=== PATIENT | female | born 1985 | race Caucasian/White ===

== ENCOUNTER 2020-01-07 20:46 | Emergency (ER) | payer MEDICAID, SELFPAY ==
[2020-01-07 20:48] VITALS: BP 134/84; PULSE 89; RESP 14; TEMP 36.8; O2SAT 100; BMI 30.7
[2020-01-07 21:27] LABS: Mucous, Urine 0 SEEN /hpf (<or=2+); White Blood Cells 0 SEEN /hpf (0-5)
[2020-01-07 21:29] LABS: Color, Urine Yellow (Yellow); Glucose, Dipstick Normal (Normal); Ketone-Dipstick Negative (Negative); Leukocyte Esterase-Dipstick Negative /ul (Negative); Nitrite-Dipstick Negative (Negative); Occult Blood-Urine 50 /ul (Negative); Protein-Dipstick Negative (Negative); Urine Bilirubin Dipstick Negative (Negative); Urine Clarity Clear (Clear); Urine Urobilinogen Normal (Normal); Urine pH 6.5 (5.0 - 8.0)
--- NOTE | 2020-01-07 21:32 | RAD_ITS ---
STUDY: X-RAY CHEST REASON FOR EXAM: Female, 34 years old. Edema for months. TECHNIQUE: Single AP portable view of the chest. COMPARISON: None. FINDINGS: The lungs are clear and expanded. There is no demonstrated pleural abnormality. Normal size heart. Normal mediastinum and esa. Normal visualized pulmonary arteries. Normal visualized aortic arch and descending thoracic aorta. Normal visualized thoracic spine. Normal visualized ribs, clavicles, and shoulders. There is no demonstrated abnormality of the visualized soft tissue structures of the upper abdomen. RAD/Chest 1 View (Portable) IMPRESSION: No acute cardiopulmonary disease. Electronically Signed: Pierre Hanson DO at 21:49 EDT Tel [phone], Service support ,
[2020-01-07 21:33] LABS: Absolute Lymphocyte Count 2.82 X10^3/uL (0.83-4.51); Basophil# 0.09 X10^3/uL; Basophil% 0.8 % (0-1); Eosinophil# 0.36 X10^3/uL; Eosinophils% 3.2 % (0-5); Hematocrit 45.9 % (37-47); Hemoglobin 15.4 g/dL (12.0-15.0); Lymphocyte # 2.82 X10^3/ul (4.0); Lymphocyte % 25.4 % (19-41); Mean Corp Hgb Conc 33.6 g/dL (32-36); Mean Corpuscular Hgb 30.1 pg (27.0-32.0); Mean Corpuscular Volume 89.8 fL (81-99); Mean Platelet Vol. 9.8 fl (6.2-12.0); Monocyte# 0.76 X10^3/uL; Monocyte% 6.8 % (0-10); NRBC Flagged by Analyzer 0 % (0-5); Neutrophil # 7.01 X10^3/uL (2.7-7.7); Neutrophil % 63.1 % (47-70); Platelet Count 330 K/mm3 (150-450); RBC Distribution Width CV 12.4 % (11.6-14.6); Red Blood Count 5.11 M/mm3 (4.2-5.4); White Blood Count 11.1 K/mm3 (4.4-11.0)
[2020-01-07 21:35] LABS: Bacteria RARE /hpf (None Seen); Red Blood Cells-Urine 0-5 SEEN /hpf (0-5); Squamous Epithelial Cells - UA 0-5 SEEN /hpf (5-10)
[2020-01-07 21:42] LABS: Internal QC Validated? YES +Cl - CLEAR BKGD; Pregnancy, Serum, hCG Quali. NEGATIVE Negative
[2020-01-07 21:49] LABS: AST(SGOT) 29 U/L (15-37); Alanine Aminotransfer ALT/SGPT 44 U/L (13-56); Albumin, Serum 3.9 g/dL (3.2-5.0); Alkaline Phosphatase 122 U/L (45-117); Anion Gap 5 (5-15); BUN 10 mg/dL (7-18); BUN/Creat Ratio 11.4 RATIO (10-20); Calcium,Total 9.2 mg/dL (8.5-10.1); Chloride 107 mmol/L (98-107); Creatinine, Serum 0.88 mg/dL (0.55-1.02); EST Glomerular Filtration Rate 78 mL/min (>60); Est Glom Filt Rate - Afr Amer 94 mL/min (>60); Estimated Creatinine Clearance 77.79 ml/min; Globulin 3.9 g/dL (2.2-4.2); Glucose 64 mg/dL (74-106); Potassium 3.7 mmol/L (3.5-5.1); Protein, Total 7.8 g/dL (6.4-8.2); Sodium Level 139 mmol/L (136-145)
--- NOTE | 2020-01-07 21:54 | ED.DCSUM_ITS ---
- ER Visit Summary Date of Service: 01/07/20 Chief Complaint: Edema History of Present Illness: The patient is a 34 F who presents with generalized edema that has been getting worse over the past several days. Patient states she was seen in an emergency department in [facility] and was prescribed Lasix. Patient states she ran out of this and since that time her swelling has gotten worse. Patient states her swelling is generalized. Patient states it is worse in her abdomen. Patient states she has some dyspnea when she lays flat. Patient denies any fevers or chills. Patient denies any cough. Patient does admit to a migraine headache. Patient denies any chest pain. Physical Examination: Vital signs are stable. Patient is afebrile. Patient is in no acute distress. Oral mucosa is pink and moist. Neck is supple. Trachea is midline. There is no JVD. Heart was regular rate and rhythm. Lungs are clear and equal bilaterally. There are no rales noted. Abdomen is soft. Bowel sounds are normal. There is mild diffuse tenderness. There is no rebound or guarding noted. Cranial nerves II through XII are intact. There are no focal motor or sensory deficits noted. Extremities are intact. There is no calf tenderness. There is no lower extremity edema noted. Test Results: CBC shows a slight leukocytosis of 11.1. Comprehensive metabolic profile was essentially within normal limits. Urinalysis does not show any evidence of urinary tract infection. Serum hCG was negative. Portable chest x- ray was obtained. There is no acute cardiopulmonary process. There are no pleural effusions or evidence of congestive heart failure. These were interpreted by the radiologist and reviewed by myself. Emergency Department Course and Treatment: Patient was advised of her results. Patient was advised that there is no indication for prescribing Lasix at this time. Patient was given a referral for primary care physician. Patient was instructed to follow-up with them. Patient was instructed to return if worse in any way. Patient understood and was agreeable with the plan. All questions were answered. Disposition: Discharge home Impression: Peripheral edema This note was generated with [employer] software. It may contain incorrect words, spelling, and punctuation that were not noted in review of the chart prior to signing ED Disposition - Plan for ED Patient: Disposition: Home or Assisted Living Diagnosis: Mild peripheral edema Instructions: ED Peripheral Edema, Bilateral Referrals: Care Physician,No Primary [Primary Care Provider] - Martinez Kilpatrick MD [STAFF PHYSICIAN] - 3-5 Days
== END 2020-01-07 22:12 | disposition home or self-care (01) ==
PROVIDERS: Emergency Provider Emergency Medicine
DX: R60.0 Localized edema (principal); G43.909 Migraine, unspecified, not intractable, without status migrainosus; F17.210 Nicotine dependence, cigarettes, uncomplicated
CPT/HCPCS: 71045; 80053; 81001; 84703; 85025; 99282; A4216

== ENCOUNTER 2021-07-22 15:26 | Emergency (ER) | payer MEDICAID, SELFPAY ==
[2021-07-22 15:27] VITALS: BP 126/80; PULSE 73; RESP 18; TEMP 36; O2SAT 97; BMI 22.3
--- NOTE | 2021-07-22 15:47 | CT_ITS ---
STUDY: CT BRAIN WITHOUT CONTRAST REASON FOR EXAM: Female, 36 years old. Dizziness RADIATION DOSAGE (If Supplied By Facility): CTDIvol = ( 44.99 ) mGy, DLP = ( 745.49 ) mGycm TECHNIQUE: Transaxial CT imaging of the brain was performed without administration of intravenous contrast material. Individualized dose optimization techniques were used for this CT. COMPARISON: No relevant priors. FINDINGS: Normal soft tissue structures. Normal calvarium. Normal size ventricles and extra-axial spaces for the patient''s age. Normal white matter tracts of the cerebral hemispheres. Normal basal ganglia and thalami. Normal brainstem. Normal cerebellum. There is no intracranial hemorrhage. There are no findings of an acute ischemic infarction. Mild mucosal thickening of the paranasal sinuses. CT/Brain/Head without Contrast IMPRESSION: Normal unenhanced CT scan of the brain. Mild paranasal sinus disease. Electronically Signed: Yannick Campa DO at 16:44 EST Tel [phone], Service support ,
--- NOTE | 2021-07-22 15:47 | EKG12_ITS ---
Test Reason : DIZZINESS Blood Pressure : / mmHG Vent. Rate : 063 BPM Atrial Rate : 063 BPM P-R Int : 168 ms QRS Dur : 076 ms QT Int : 438 ms P-R-T Axes : 022 040 036 degrees QTc Int : 448 ms Normal sinus rhythm Normal ECG Confirmed by LOGAN EDGAR, RODGER ([id number]), desk editor CLARY DOUGLAS ([id number]) on 07/25/2021 11:31:55 AM Referred By: MAX Confirmed By:RODGER FORD MD
--- NOTE | 2021-07-22 15:48 | EDS_ITS ---
HPI History of Present Illness Chief Complaint: Dizziness Narrative Narrative: Patient presents with her mother because of an episode of dizziness and lightheadedness that she experienced approximately an hour ago. She states that she had just turned on her telephone and was watching a [employer] video, and had blurry vision in her bilateral eyes, I developed a headache on the right side of her body, and states that her left arm felt numb. Those symptoms have resolved and now she feels weak. 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 She also has an inhaler for asthma. She and her mother relate history that she was living in [place] and was diagnosed with brain tumor last . She also has multiple sclerosis, but does not take any medications. She has not followed up with a neurologist since her diagnosis of her brain tumor and does not take medications for her MS. PFSH PFS Home Medications Buprenorphine 1 tab PO DAILY 01/07/20 [History Last Taken Unknown] albuterol sulfate 1 - 2 puff INHALATION Q4H PRN PRN 01/07/20 [History Last Taken Unknown] Allergy/AdvReac Type Severity Reaction Status Date / Time acetaminophen [From Vicodin] Allergy Shortness Verified 07/22/21 15:28 of breath aspirin Allergy Hives Verified 07/22/21 15:28 hydrocodone [From Vicodin] Allergy Shortness Verified 07/22/21 15:28 of breath Social History Smoking Status: Current every day smoker tobacco type: cigarettes ROS ROS ED ROS Narrative Constitutional: No fever, no chills. HEENT: No sore throat. No neck pain. No loss of vision. Transient blurry vision bilateral eyes. No rhinorrhea. Cardiovascular: No chest pain. No palpitations. No pedal edema. Respiratory: No cough, no shortness of breath. Abdominal: No abdominal pain. No nausea. No vomiting. Genitourinary: No dysuria. No hematuria. Musculoskeletal: No myalgias. No arthralgias. Neurologic: Right-sided headaches. Positive dizziness. Positive lightheadedness. Paresthesia of left upper extremity-resolved. Generalized weakness. Skin: No rash. No change in color. Psychiatric: No depression. No anxiety. EXAM Physical Exam Narrative Exam Narrative: Afebrile. Vital signs noted. HEENT: Normocephalic. Atraumatic. PERRL, EOMI. Neck soft and supple. No point tenderness or step off. Cardiovascular: Regular rate and rhythm. No murmurs, rubs, or gallops appreciated. Respiratory: No tachypnea. Lungs clear to auscultation bilaterally. Gastrointestinal: Abdomen soft, nontender, with normoactive bowel sounds. No rebound or guarding. Neurological: Awake. Alert. Nonfocal, nonlateralizing. NIH stroke scale is 0. Skin: No rash. Normal color. No pallor. Musculoskeletal: No pedal edema. Full range of motion extremities. Const Vital Signs: 07/22/21 15:27 07/22/21 15:38 07/22/21 16:56 Temperature 96.8 F L Temperature Source Temporal Pulse Rate 73 61 Respiratory Rate 18 20 H Respiratory Effort Normal Non-Labored Respiratory Pattern Normal Blood Pressure 126/80 H 134/91 H Blood Pressure Mean 95 105 Pulse Ox 97 100 Oxygen Delivery Method Room Air MDM MDM MDM Narrative Medical decision making narrative: Comprehensive work-up was pursued. EKG was obtained which demonstrates normal sinus rhythm at 63 bpm without ectopy or acute ST changes. High-sensitivity troponin is negative at 6. He has slightly elevated white count of 11.2 which I think is nonspecific. Hemoglobin also elevated 15.2, with normal hematocrit of 45.1. Electrolyte panel is grossly unremarkable. This is with exception of alk phos which is chronically elevated, today at 119. Urinalysis shows negative nitrites and negative leukocyte esterase. I do not feel antibiotics are indicated. Chest x-ray shows no acute process. CT the brain was obtained which shows no evidence of mass, no acute process. After bolus of normal saline intravenously, she was reexamined and is using her cellular telephone, resting comfortably in bed. She states she feels mildly improved. At this point in time, I feel she be discharged safely home with follow-up. Return instructions to the emergency department were reviewed. Disposition is discharged home in stable condition. Lab Data Labs: Laboratory Results - last 24 hr 07/22/21 07/22/21 07/22/21 16:05 16:05 16:15 WBC 11.2 H RBC 4.92 Hgb 15.2 H Hct 45.1 MCV 91.7 MCH 30.9 MCHC 33.7 RDW Std Deviation 42.5 RDW Coeff of Johnny 12.6 Plt Count 314 MPV 10.5 Immature Gran % (Auto) 0.600 Neut % (Auto) 71.2 H Lymph % (Auto) 19.0 Lamar % (Auto) 5.3 Eos % (Auto) 2.9 Baso % (Auto) 1.0 Absolute Neuts (auto) 7.9 H Absolute Lymphs (auto) 2.12 Nucleated RBC % 0 Sodium 138 Potassium 3.8 Chloride 105 Carbon Dioxide 28.0 Anion Gap 5 BUN 8 Creatinine 0.84 Estim Creat Clear Calc 79.95 Est GFR (MDRD) Af Amer 99 Est GFR (MDRD) Non-Af 82 BUN/Creatinine Ratio 9.5 L Glucose 104 Calcium 8.6 Total Bilirubin 0.30 AST 21 ALT 29 Alkaline Phosphatase 119 H Troponin I High Sens 6 Total Protein 7.4 Albumin 3.3 Globulin 4.1 Albumin/Globulin Ratio 0.8 L Urine Color Yellow Urine Clarity Clear Urine pH 8.0 Ur Specific [place] 1.015 Urine Protein Negative Urine Glucose (UA) Normal Urine Ketones Negative Urine Occult Blood 50 H Urine Nitrite Negative Urine Bilirubin Negative Urine Urobilinogen Normal Ur Leukocyte Esterase Negative Urine RBC 0-5 SEEN Urine WBC 0 SEEN Ur Squamous Epith Cells 0 SEEN Urine Bacteria 0 SEEN Urine Mucus 0 SEEN Radiography Diagnostic Testing: Clinical Impression(s) from Imaging Studies Brain CT 07/22/21 15:47 IMPRESSION: Normal unenhanced CT scan of the brain. Mild paranasal sinus disease. Electronically Signed: Yannick Campa DO at 16:44 EST Tel [phone], Service support , Chest X-Ray 07/22/21 16:30 IMPRESSION: Normal x-ray examination of the chest. Electronically Signed: Yannick Campa DO at 16:45 EST Tel [phone], Service support , Discharge Plan Triage Chief Complaint: Dizziness ED Provider: Kris Griffin Dx/Rx/DC Orders Clinical Impression: Dizziness, Paresthesia, Near syncope, Headache Instructions: ED Dizziness, Uncertain Cause, ED Paraesthesias Prescriptions: No Action albuterol sulfate 1 PUFF inhaler 1 - 2 puff inhalation Q4H PRN PRN (Reason: Sob &/Or Wheezing) RF: 0 Buprenorphine 1 tab PO DAILY RF: 0 Primary Care Provider: Care Physician,No Primary Referrals: Care Physician,No Primary [Primary Care Provider] - Clinic[facility] [NON-STAFF] - 07/27/21 Disposition Disposition: Home, Self Care
--- NOTE | 2021-07-22 15:52 | CM.ED ---
SW Note Referral Source: Case Find Referral Reason: No Primary Care Physician (PCP) SW reviewed chart and noted that patient has no PCP. SW provided patient with list of [facility] List for reference. SW also provided patient with handout ?Where to go When?. No other issues or concerns voiced at this time. SW remains available for any additional needs. Plan: Provided patient with PCP information Asmita SCHMIDT
[2021-07-22] MEDS: 0.9% Normal Saline 1,000 ML 1000 ML IV (16:20)
[2021-07-22 16:22] LABS: Bacteria 0 SEEN /hpf (None Seen); Mucous, Urine 0 SEEN /hpf (<or=2+); Squamous Epithelial Cells - UA 0 SEEN /hpf (5-10); White Blood Cells 0 SEEN /hpf (0-5)
[2021-07-22 16:26] LABS: Absolute Lymphocyte Count 2.12 X10^3/uL (0.83-4.51); Absolute Neutrophil Count 7.9 X10^3/uL (2.0-7.7); Basophil# 0.11 X10^3/uL; Eosinophil# 0.32 X10^3/uL; Eosinophils% 2.9 % (0-5); Hematocrit 45.1 % (37-47); Hemoglobin 15.2 g/dL (12.0-15.0); Lymphocyte # 2.12 X10^3/ul (0.83-4.51); Mean Corp Hgb Conc 33.7 g/dL (32-36); Mean Corpuscular Hgb 30.9 pg (27.0-32.0); Mean Corpuscular Volume 91.7 fL (81-99); Mean Platelet Vol. 10.5 fl (6.2-12.0); Monocyte# 0.59 X10^3/uL; Monocyte% 5.3 % (0-10); NRBC Flagged by Analyzer 0 % (0-5); Neutrophil # 7.94 X10^3/uL (2.7-7.7); Neutrophil % 71.2 % (47-70); Platelet Count 314 K/mm3 (150-450); RBC Distribution Width CV 12.6 % (11.6-14.6); RBC Distribution Width SD 42.5 fl (35.1-43.9); Red Blood Count 4.92 M/mm3 (4.2-5.4); White Blood Count 11.2 K/mm3 (4.4-11.0)
--- NOTE | 2021-07-22 16:30 | RAD_ITS ---
STUDY: X-RAY CHEST REASON FOR EXAM: Female, 36 years old. Pain TECHNIQUE: Frontal view COMPARISON: 01/07/2020. FINDINGS: The lungs are clear and expanded. There is no demonstrated pleural abnormality. Normal size heart. Normal mediastinum and esa. Normal visualized pulmonary arteries. Normal visualized aortic arch and descending thoracic aorta. Normal visualized thoracic spine. Normal visualized ribs, clavicles, and shoulders. There is no demonstrated abnormality of the visualized soft tissue structures of the upper abdomen. RAD/Chest 1 View (Portable) IMPRESSION: Normal x-ray examination of the chest. Electronically Signed: Yannick Campa DO at 16:45 EST Tel [phone], Service support ,
[2021-07-22 16:35] LABS: ALB/GLOB Ratio 0.8 RATIO (0.9-2.4); AST(SGOT) 21 U/L (15-37); Alanine Aminotransfer ALT/SGPT 29 U/L (13-56); Albumin, Serum 3.3 g/dL (3.2-5.0); Alkaline Phosphatase 119 U/L (45-117); Anion Gap 5 (5-15); BUN 8 mg/dL (7-18); BUN/Creat Ratio 9.5 RATIO (10-20); Calcium,Total 8.6 mg/dL (8.5-10.1); Chloride 105 mmol/L (98-107); Creatinine, Serum 0.84 mg/dL (0.55-1.02); EST Glomerular Filtration Rate 82 mL/min (>60); Est Glom Filt Rate - Afr Amer 99 mL/min (>60); Estimated Creatinine Clearance 79.95 ml/min; Globulin 4.1 g/dL (2.2-4.2); Glucose 104 mg/dL (74-106); Potassium 3.8 mmol/L (3.5-5.1); Protein, Total 7.4 g/dL (6.4-8.2); Sodium Level 138 mmol/L (136-145); Troponin-I HS 6 pg/mL (3.0-54.0)
[2021-07-22 16:37] LABS: Color, Urine Yellow (Yellow); Glucose, Dipstick Normal (Normal); Ketone-Dipstick Negative (Negative); Leukocyte Esterase-Dipstick Negative /ul (Negative); Nitrite-Dipstick Negative (Negative); Occult Blood-Urine 50 /ul (Negative); Protein-Dipstick Negative (Negative); Specific Gravity, Urine 1.015 (1.002-1.030); Urine Bilirubin Dipstick Negative (Negative); Urine Clarity Clear (Clear); Urine Urobilinogen Normal (Normal)
[2021-07-22 16:56] VITALS: BP 134/91; PULSE 61; RESP 20; O2SAT 100
[2021-07-22 17:00] LABS: Red Blood Cells-Urine 0-5 SEEN /hpf (0-5)
[2021-07-22 18:06] VITALS: BP 127/84; PULSE 86; RESP 15; O2SAT 96
== END 2021-07-22 18:08 | disposition home or self-care (01) ==
PROVIDERS: Emergency Provider Emergency Medicine
DX: R42 Dizziness and giddiness (principal); R55 Syncope and collapse; R51.9 Headache, unspecified; R20.2 Paresthesia of skin; F17.210 Nicotine dependence, cigarettes, uncomplicated; G35 Multiple sclerosis; J45.909 Unspecified asthma, uncomplicated
CPT/HCPCS: 70450; 71045; 80053; 81001; 84484; 85025; 93005; 96360; 99285; J7030; A4216

== ENCOUNTER 2022-03-02 21:37 | Emergency (ER) | payer MEDICAID, SELFPAY ==
[2022-03-02 21:37] VITALS: BP 137/90; PULSE 86; RESP 18; TEMP 36.4; O2SAT 98; BMI 28.3
--- NOTE | 2022-03-02 22:24 | EDS_ITS ---
HPI History of Present Illness Chief Complaint: General Illness Informant: patient Onset/Context/Timing Onset: Today Context: Gradual Onset Timing: Intermittent Current Severity: Mild Maximum Severity: Mild Narrative Narrative: 36-year-old female past medical history of MS and prior heroin abuse. She denies having any IV drug abuse history. 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 When she got home this morning she noticed some mild swelling in her feet. She went to sleep symptoms improved. Then she noticed again the night. She denies any chest pain or shortness of breath. She denies any leg pain. States she is urinating normally. Has no history of kidney disease. No other symptoms. No recent illness or hospitalization. No history of DVT or PE or risk factors. Prior similar symptoms: No Recent Illness/Hospitalization: No PFSH PFSH Medical History Asthma Multiple sclerosis Home Medications Buprenorphine 1 tab PO DAILY 01/07/20 [History Last Taken Unknown] albuterol sulfate 90 mcg/actuation aerosol inhaler 1 - 2 puff inhalation Q4H PRN PRN Sob &/Or Wheezing 01/07/20 [History Last Taken Unknown] Allergy/AdvReac Type Severity Reaction Status Date / Time acetaminophen [From Vicodin] Allergy Shortness Verified 03/02/22 21:40 of breath aspirin Allergy Hives Verified 03/02/22 21:40 hydrocodone [From Vicodin] Allergy Shortness Verified 03/02/22 21:40 of breath Social History Smoking Status: Current every day smoker tobacco type: cigarettes ROS ROS ED ROS Narrative Denies recent illness. Review of Systems ROS Unobtainable: Denies due to encephalopathy Constitutional Constitutional ED: Denies chills Eyes Eyes: Denies blurry vision ENT ENT ED: Denies ear pain Cardiovascular Cardiovascular: Denies chest pain Respiratory/Chest Respiratory/Chest: Denies cough Gastrointestinal Gastrointestinal: Denies abdominal pain Genitourinary Genitourinary ED: Denies dysuria Musculoskeletal Musculoskeletal: Denies arthralgias Integumentary Denies abscess Neurologic Neurologic: Denies headache(s) Psychiatric Psychiatric: Denies anxiety Endocrine Endocrinology: Denies cold intolerance Allergic/Immunologic Allergic/Immunologic ED: Denies mouth swelling EXAM Physical Exam Narrative Exam Narrative: Well-appearing 36-year-old female. Vital signs stable afebrile. Pulse ox 90% on room air. No hypoxia. Blood pressure 137/90. She does not look septic or toxic in any distress. H EENT exam unremarkable except for reported Leal dentition multiple cavities. Neck nontender. No JVD. Lungs clear to auscultation bilaterally. Heart regular rate and rhythm rate about 80 no murmur. Abdomen soft nontender. Moving all 4 extremities. Calves are nontender without edema or cords. She has bipedal edema that is mild. Normal strength. Neurologically she is awake alert with no focal motor deficits. Const Vital Signs: 03/02/22 21:37 03/02/22 21:55 Temperature 97.6 F L Temperature Source Temporal Pulse Rate 86 Respiratory Rate 18 Respiratory Pattern Normal Blood Pressure 137/90 H Blood Pressure Mean 105 Pulse Ox 98 Oxygen Delivery Method Room Air Positive well nourished and well developed; Negative for obese, cachectic or contractures General Appearance ED: well developed; Negative for cachectic or contractures Nutritional Appearance: Negative for cachectic or obese HEENT Reports moist mucous membranes; Denies dry mucous membranes Negative for trauma or tenderness Mouth ED: No dry mucous membranes Mouth: No dry mucous membranes Eyes PERRL and EOMs intact bilaterally General Eye ED: Negative for pale conjunctiva or scleral icterus Neck no lymphadenopathy, supple and no JVD General: Negative for tenderness Chest Wall inspection of chest normal and palpation of chest normal Resp normal respiratory effort and clear to auscultation bilaterally Effort and Inspection: Negative for retractions Auscultation: Negative for rales, rhonchi, wheezes or diminished lung sounds Cardio regular rate, regular rhythm, S1 normal heart sound, S2 normal heart sound and no murmurs Palpation: Negative for palpable S3 Rate: Negative for bradycardia Rhythm: Negative for abnormal rhythm GI normal to inspection, nondistended, normoactive bowel sounds, non-tender, non- distended and no masses; Negative for hepatosplenomegaly Inspection: Negative for abdominal distention Auscultation: normoactive bowel sounds; Negative for hyperactive bowel sounds or hypoactive bowel sounds Palpation: soft; Negative for tender, guarding or mass Back/Spine no CVA tenderness General Back: Negative for CVA tenderness Cervical Spine: Negative for cervical spine tenderness Thoracic Spine / Upper Back: Negative for thoracic spinal tenderness Extremity Extremity Narrative: Bipedal edema.. Nontender. Calves are nontender without cords. General Extremety ED: Yes edema General Extremity: edema Neuro oriented x3 Sensorium / Orientation: alert; Negative for orientation impaired, lethargic or stuporous Motor Exam: strength 5/5 throughout; Negative for general weakness or strength abnormal Psych mental status grossly normal Appearance: Negative for other Attitude: No agitated Mood & Affect: Negative for depressed Skin no rashes or lesions noted and no wounds Rashes: No rashes noted Trauma: Negative for abrasion Wounds: Negative for wounds noted MDM MDM MDM Narrative Medical decision making narrative: 36-year-old with bipedal mild edema. Exam benign. Screening labs to be obtained. Repeat exam patient is doing well at 11:05 PM. We went over her test results. She will be discharged to home. Lab Data Attestation: I reviewed the patient's lab results. Lab results narrative: CBC normal. White count 8. H&H 14 and 44. Electrolytes normal gap of 4 normal BUN and creatinine at 9 and 0.8. Glucose 119. Labs: Laboratory Results - last 24 hr 03/02/22 03/02/22 22:30 22:30 WBC 8.3 RBC 4.78 Hgb 14.9 Hct 44.3 MCV 92.7 MCH 31.2 MCHC 33.6 RDW Std Deviation 43.5 RDW Coeff of Johnny 12.8 Plt Count 313 MPV 10.3 Sodium 137 Potassium 4.0 Chloride 105 Carbon Dioxide 28.0 Anion Gap 4 L BUN 9 Creatinine 0.82 Estim Creat Clear Calc 78.46 Est GFR (MDRD) Af Amer 101 Est GFR (MDRD) Non-Af 83 BUN/Creatinine Ratio 10.9 Glucose 119 H Calcium 8.9 Discharge Plan Triage Chief Complaint: General Illness ED Provider: Bimal Sharma Dx/Rx/DC Orders Clinical Impression: Mild peripheral edema Instructions: ED Peripheral Edema, Bilateral Prescriptions: No Action albuterol sulfate 1 PUFF inhaler 1 - 2 puff inhalation Q4H PRN PRN (Reason: Sob &/Or Wheezing) Buprenorphine 1 tab PO DAILY Primary Care Provider: Care Physician,No Primary Referrals: Venkatesh Oshea MD [STAFF PHYSICIAN] - As Needed Care Physician,No Primary [Primary Care Provider] - Activity Restrictions/Additional Instructions: Full follow-up with your doctor as needed. Return if worse. Elevate your leg to decrease the swelling. Disposition Disposition: Home, Self Care
[2022-03-02 22:41] LABS: Hematocrit 44.3 % (37-47); Hemoglobin 14.9 g/dL (12.0-15.0); Mean Corp Hgb Conc 33.6 g/dL (32-36); Mean Corpuscular Hgb 31.2 pg (27.0-32.0); Mean Corpuscular Volume 92.7 fL (81-99); Mean Platelet Vol. 10.3 fl (6.2-12.0); Platelet Count 313 K/mm3 (150-450); RBC Distribution Width CV 12.8 % (11.6-14.6); RBC Distribution Width SD 43.5 fl (35.1-43.9); Red Blood Count 4.78 M/mm3 (4.2-5.4); White Blood Count 8.3 K/mm3 (4.4-11.0)
[2022-03-02 22:57] LABS: Anion Gap 4 (5-15); BUN 9 mg/dL (7-18); BUN/Creat Ratio 10.9 RATIO (10-20); Calcium,Total 8.9 mg/dL (8.5-10.1); Chloride 105 mmol/L (98-107); Creatinine, Serum 0.82 mg/dL (0.55-1.02); EST Glomerular Filtration Rate 83 mL/min (>60); Est Glom Filt Rate - Afr Amer 101 mL/min (>60); Estimated Creatinine Clearance 78.46 ml/min; Glucose 119 mg/dL (74-106); Sodium Level 137 mmol/L (136-145)
[2022-03-02 23:13] VITALS: BP 105/77; PULSE 65; RESP 16; O2SAT 95
== END 2022-03-02 23:19 | disposition home or self-care (01) ==
PROVIDERS: Emergency Provider Emergency Medicine; Visit Provider Emergency Medicine
DX: R60.0 Localized edema (principal); G35 Multiple sclerosis; F17.210 Nicotine dependence, cigarettes, uncomplicated; J45.909 Unspecified asthma, uncomplicated
CPT/HCPCS: 80048; 85027; 99282; A4216

== ENCOUNTER → 2022-03-08 | Outpatient (CLI) | payer MEDICAID, SELFPAY ==
[2022-03-08 12:41] LABS: Thyroid Stim Hormone (TSH) 2.69 uIU/mL (0.358-3.74)
== END | disposition home or self-care (01) ==
LOC: BIMLAB 10:27
PROVIDERS: PCP Internal Medicine; Referring Provider Internal Medicine; Visit Provider Internal Medicine
DX: R63.5 Abnormal weight gain (principal); R42 Dizziness and giddiness; R60.0 Localized edema
CPT/HCPCS: 36415; 84443

== ENCOUNTER → 2022-03-09 | Outpatient (CLI) | payer MEDICAID, SELFPAY | END | disposition home or self-care (01) | LOC: PSN 11:58 | PROVIDERS: PCP Internal Medicine; Referring Provider Internal Medicine; Visit Provider Internal Medicine | DX: R42 Dizziness and giddiness (principal) | CPT/HCPCS: 93225; 93226 ==

== ENCOUNTER 2022-03-12 14:31 | Emergency (ER) | payer MEDICAID, SELFPAY ==
[2022-03-12 14:34] VITALS: BP 113/90; PULSE 97; RESP 17; TEMP 36.6; O2SAT 96; BMI 30.4
--- NOTE | 2022-03-12 14:41 | EKG12_ITS ---
Test Reason : CP Blood Pressure : / mmHG Vent. Rate : 090 BPM Atrial Rate : 090 BPM P-R Int : 142 ms QRS Dur : 080 ms QT Int : 370 ms P-R-T Axes : 022 036 047 degrees QTc Int : 452 ms Normal sinus rhythm Nonspecific T wave abnormality Abnormal ECG Confirmed by LU EDGAR, SANKET ([id number]), film editor supervisor CLARY DOUGLAS ([id number]) on 03/14/2022 9:54:38 AM Referred By: Leslie Dee Confirmed By:SANKET LEIGH MD
--- NOTE | 2022-03-12 15:19 | EDS_ITS ---
HPI History of Present Illness Chief Complaint: Edema Informant: patient Narrative Narrative: Patient Osman presents with lower extremity edema. It is bilateral and equal. She was seen here a week or so ago with this. She did follow-up with her physician. She had what sounds like a Holter monitor on for 2 or 3 days. However I cannot get from her that she ever had palpitations or chest pain. She cannot recall any change in her diet or salty foods. She does state that she has been drinking lots of fluids in the heat. She does stand on her feet at work. This sometimes makes it worse. Sometimes he gets better resting overnight but not always. She states sometimes she gets shortness of breath on review of systems. However, the more I asked she states she has asthma and she sometimes gets short of breath and that is been going on for years and is not any different now. She is not short of breath now. She has had no travel surgery or immobilization personal or family history of DVT or PE. She was seen here and blood work was done. She followed up with her physician, Dr. Whyte. The monitor was done. She called the on-call physician today stating she still has swelling and she was referred into the emergency department because they karen l not be able to see her until Sunday. No fevers or chills. No other complaints. No change in medicines [facility] Medical History Anxiety Asthma Drug abuse Fluttering heart H/O emotional problems High blood pressure Hives Insomnia Multiple sclerosis Neuropathy UTI (urinary tract infection) Home Medications albuterol sulfate 90 mcg/actuation aerosol inhaler 1 - 2 puff inhalation Q4H PRN PRN Sob &/Or Wheezing 01/07/20 [History Last Taken Unknown] Buprenorphine 2 tab PO DAILY 03/08/22 [History Last Taken Unknown] ibuprofen 600 mg tablet 600 mg PO TID PRN Pain 03/08/22 [History Last Taken Unknown] trazodone 50 mg tablet 50 mg PO QHS #30 tabs 03/08/22 [Rx Last Taken Unknown] amoxicillin 875 mg tablet 1 tab PO BID 03/12/22 [History Last Taken Unknown] Allergy/AdvReac Type Severity Reaction Status Date / Time acetaminophen [From Vicodin] Allergy Shortness Verified 03/12/22 14:32 of breath aspirin Allergy Hives Verified 03/12/22 14:32 hydrocodone [From Vicodin] Allergy Shortness Verified 03/12/22 14:32 of breath naxolene Allergy Swelling Uncoded 03/12/22 14:32 Family History Father Alcohol abuse Arthritis Liver disease Grandfather Alcohol abuse Colon cancer Mother Arthritis Asthma CVA (cerebral vascular accident) Aunt Breast cancer Cancer uterine Surgical History H/O dilation and curettage History of partial hysterectomy Social History household members: family and children current occupational status: employed 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 Smoking Status: Current every day smoker tobacco type: cigarettes Electronic Cigarette Use: not used alcohol intake: never substance use type: does not use what type of physical activity do you participate in: walking do you feel safe at home: Yes ROS ROS ED Constitutional Constitutional ED: Denies chills, fever(s), sweats or weight loss Eyes Eyes: Denies change in vision ENT ENT ED: Denies rhinorrhea Cardiovascular Cardiovascular: Denies chest pain, palpitations or racing heartbeat Respiratory/Chest Respiratory/Chest: Denies cough, dyspnea, dyspnea on exertion or sputum Gastrointestinal Gastrointestinal: Denies abdominal pain, diarrhea, nausea or vomiting Genitourinary Genitourinary ED: Denies dysuria or hematuria Musculoskeletal Musculoskeletal: Denies arthralgias or myalgias Integumentary Denies rash Neurologic Neurologic: Denies headache(s), paresthesias or weakness Endocrine Endocrinology: Denies polydipsia or polyuria Hematologic/Lymphatic Hematologic/Lymphatic: Denies easy bleeding or easy bruising Allergic/Immunologic Allergic/Immunologic ED: Denies urticaria EXAM Physical Exam Const Vital Signs: 03/12/22 14:34 03/12/22 14:39 Temperature 97.8 F Temperature Source Temporal Pulse Rate 97 Respiratory Rate 17 Respiratory Effort Short of Breath Blood Pressure 113/90 H Blood Pressure Mean 97 Pulse Ox 96 Oxygen Delivery Method Room Air Positive well nourished and well developed Constitutional Narrative: Patient is laying flat in the bed when I walk in the room. Breathing is easy and unlabored. She carries on normal conversation. Overall nontoxic General Appearance ED: well developed and NAD HEENT Reports moist mucous membranes Eyes General Eye ED: Negative for pale conjunctiva or scleral icterus Neck no JVD Resp normal respiratory effort and clear to auscultation bilaterally Resp Narrative: No rales. No wheezing no pain with a deep breath. Auscultation: Negative for rales, rhonchi or wheezes Cardio regular rate, regular rhythm and no murmurs GI normal to inspection, nondistended, normoactive bowel sounds, non-tender and non-distended Back/Spine no CVA tenderness Extremity Extremity Narrative: There is trace swelling around the ankles and feet. Although I press firmly into the pretibial area, I am not able to get actually any pitting. But her feet and ankles do look a little pizarro than I would expect from the rest of her body habitus. Color is normal. Pulses are normal. No change in temperature. No lesions sores or rash. The changes I see look equal side to side. Neuro oriented x3 Psych mental status grossly normal Skin no rashes or lesions noted MDM MDM MDM Narrative Medical decision making narrative: Patient's CBC is normal. Electrolytes are normal. BUN is on the lower side. This might be overhydration as the patient has been drinking a lot of fluids. BNP is normal. I did send off a TSH but we may not get this back. I think patient safe for outpatient treatment. She has no risk factor for DVT or PE. No cord. No distended veins. She has equal mild peripheral edema at ankles and feet. She should elevate them. She should not over hydrate with free water. She will follow-up with her private physician, Dr. Dee. If she develops pain, fevers, dyspnea chest pain she should return. Patient is comfortable with this plan. She did request a note from work which was provided. Lab Data Attestation: I reviewed the patient's lab results. Labs: Laboratory Results - last 24 hr 03/12/22 03/12/22 03/12/22 15:30 15:30 15:30 WBC 10.1 RBC 4.92 Hgb 15.4 H Hct 45.4 MCV 92.3 MCH 31.3 MCHC 33.9 RDW Std Deviation 42.9 RDW Coeff of Johnny 12.7 Plt Count 351 MPV 10.1 Immature Gran % (Auto) 0.900 Neut % (Auto) 60.1 Lymph % (Auto) 26.3 [place]orne % (Auto) 7.2 Eos % (Auto) 4.4 Baso % (Auto) 1.1 H Absolute Neuts (auto) 6.1 Absolute Lymphs (auto) 2.66 Nucleated RBC % 0 Sodium 138 Potassium 3.6 Chloride 106 Carbon Dioxide 28.0 Anion Gap 4 L BUN 6 L Creatinine 0.89 Estim Creat Clear Calc 72.29 Est GFR (MDRD) Af Amer 92 Est GFR (MDRD) Non-Af 76 BUN/Creatinine Ratio 6.7 L Glucose 84 Calcium 8.7 B-Natriuretic Peptide 7.9 Discharge Plan Triage Chief Complaint: Edema ED Provider: Ganga Oshea Dx/Rx/DC Orders Clinical Impression: Mild peripheral edema Instructions: ED Peripheral Edema, Bilateral Prescriptions: No Action trazodone 50 mg tablet 50 mg PO QHS Qty: 30 1RF ibuprofen 600 mg tablet 600 mg PO TID PRN (Reason: Pain) albuterol sulfate 1 PUFF inhaler 1 - 2 puff inhalation Q4H PRN PRN (Reason: Sob &/Or Wheezing) Buprenorphine 2 tab PO DAILY amoxicillin 875 mg tablet 1 tab PO BID Label Comments: take 2 tablets by mouth immediately FOLLOWED BY 1 tablet twice a day Primary Care Provider: Leslie Dee Referrals: Leslie Dee MD [Primary Care Provider] - As soon as possible Disposition Disposition: Home, Self Care
[2022-03-12 15:41] LABS: Absolute Lymphocyte Count 2.66 X10^3/uL (0.83-4.51); Absolute Neutrophil Count 6.1 X10^3/uL (2.0-7.7); Basophil# 0.11 X10^3/uL; Basophil% 1.1 % (0-1); Eosinophil# 0.45 X10^3/uL; Eosinophils% 4.4 % (0-5); Hematocrit 45.4 % (37-47); Hemoglobin 15.4 g/dL (12.0-15.0); Lymphocyte # 2.66 X10^3/ul (0.83-4.51); Lymphocyte % 26.3 % (19-41); Mean Corp Hgb Conc 33.9 g/dL (32-36); Mean Corpuscular Hgb 31.3 pg (27.0-32.0); Mean Corpuscular Volume 92.3 fL (81-99); Mean Platelet Vol. 10.1 fl (6.2-12.0); Monocyte# 0.73 X10^3/uL; Monocyte% 7.2 % (0-10); NRBC Flagged by Analyzer 0 % (0-5); Neutrophil # 6.08 X10^3/uL (2.7-7.7); Neutrophil % 60.1 % (47-70); Platelet Count 351 K/mm3 (150-450); RBC Distribution Width CV 12.7 % (11.6-14.6); RBC Distribution Width SD 42.9 fl (35.1-43.9); Red Blood Count 4.92 M/mm3 (4.2-5.4); White Blood Count 10.1 K/mm3 (4.4-11.0)
[2022-03-12 15:59] LABS: Anion Gap 4 (5-15); BUN 6 mg/dL (7-18); BUN/Creat Ratio 6.7 RATIO (10-20); Calcium,Total 8.7 mg/dL (8.5-10.1); Chloride 106 mmol/L (98-107); Creatinine, Serum 0.89 mg/dL (0.55-1.02); EST Glomerular Filtration Rate 76 mL/min (>60); Est Glom Filt Rate - Afr Amer 92 mL/min (>60); Estimated Creatinine Clearance 72.29 ml/min; Glucose 84 mg/dL (74-106); Potassium 3.6 mmol/L (3.5-5.1); Sodium Level 138 mmol/L (136-145)
[2022-03-12 16:06] LABS: BNP,B-Type NATRIURETIC PEPTIDE 7.9 pg/mL (0-100)
[2022-03-12 16:40] VITALS: BP 121/90; PULSE 77; RESP 16; O2SAT 100
[2022-03-12 17:27] LABS: Thyroid Stim Hormone (TSH) 1.44 uIU/mL (0.358-3.74)
== END 2022-03-12 16:45 | disposition home or self-care (01) ==
PROVIDERS: Emergency Provider Emergency Medicine; PCP Internal Medicine; Visit Provider Emergency Medicine
DX: R60.0 Localized edema (principal); F17.210 Nicotine dependence, cigarettes, uncomplicated
CPT/HCPCS: 80048; 83880; 84443; 85025; 93005; 99282

== ENCOUNTER 2024-03-01 18:56 | Emergency (ER) | payer MEDICAID, SELFPAY ==
[2024-03-01 18:57] VITALS: BP 130/94; PULSE 83; PULSE 85; RESP 14; RESP 16; TEMP 36.2; O2SAT 95; BMI 28.9
[2024-03-01 19:20] VITALS: BP 128/86; PULSE 86; RESP 18; TEMP 36.8; O2SAT 97
--- NOTE | 2024-03-01 19:30 | ED.VIS.DENTA ---
HPI History of Present Illness Chief Complaint: Dental Detail of Chief Complaint: Dental pain. Informant: patient Onset/Context/Timing Onset: Days Context: Gradual Onset Timing: Continuous Current Severity: Mild Maximum Severity: Mild Associated Symptoms Assocated Symptom - Dental: jaw swelling Narrative Narrative: 38-year-old female history of poor dentition. Was post to see a dentist last week the appointment got canceled due to someone on the dental office. Patient has a follow-up appointment on March 11 she cannot get any sooner than that. She complaining of pain and mild facial swelling. She denies any fever or trouble swallowing or breathing. Prior similar symptoms: Yes Recent Illness/Hospitalization: No PFSH PFSH Medical History Fluttering heart Anxiety Insomnia Neuropathy Hives High blood pressure Drug abuse H/O emotional problems UTI (urinary tract infection) Asthma Multiple sclerosis Home Medications ?Medication ?Instructions ?Recorded ?Last Taken ?Type albuterol sulfate 90 mcg/actuation 1 - 2 puff inhalation Q4H PRN PRN 01/07/20 Unknown History aerosol inhaler Sob &/Or Wheezing Buprenorphine 2 tab PO DAILY 03/08/22 Unknown History ibuprofen 600 mg tablet 600 mg PO TID PRN Pain 03/08/22 Unknown History trazodone 50 mg tablet 50 mg PO QHS #30 tabs 03/08/22 Unknown Rx amoxicillin 875 mg tablet 1 tab PO BID 03/12/22 Unknown History penicillin V potassium 500 mg 500 mg PO 4X/DAY #40 tabs 03/01/24 Unknown Rx tablet Allergy/AdvReac Type Severity Reaction Status Date / Time acetaminophen (From Vicodin) Allergy Shortness Verified 03/01/24 18:58 of breath aspirin Allergy Hives Verified 03/01/24 18:58 hydrocodone (From Vicodin) Allergy Shortness Verified 03/01/24 18:58 of breath naloxone (From Narcan) Allergy Swelling Verified 03/01/24 18:58 Family History Father Alcohol abuse Arthritis Liver disease Grandfather Alcohol abuse Colon cancer Mother Arthritis Asthma CVA (cerebral vascular accident) Aunt Breast cancer Cancer uterine Surgical History H/O dilation and curettage History of partial hysterectomy Social History household members: family and children current occupational status: employed current occupation: night audit at [employer] Smoking Status: Current every day smoker tobacco type: cigarettes Electronic Cigarette Use: not used alcohol intake: never substance use type: does not use what type of physical activity do you participate in: walking do you feel safe at home: Yes ROS ROS ED ROS Narrative Denies recent illness. Review of Systems ROS Unobtainable: Denies due to encephalopathy Constitutional Constitutional ED: Denies chills or fever(s) Eyes Eyes: Denies blurry vision ENT ENT ED: Denies ear pain Cardiovascular Cardiovascular: Denies chest pain Respiratory/Chest Respiratory/Chest: Denies cough or dyspnea Gastrointestinal Gastrointestinal: Denies abdominal pain Genitourinary Genitourinary ED: Denies dysuria or hematuria Musculoskeletal Musculoskeletal: Denies arthralgias, back pain, myalgias or neck pain Integumentary Denies abscess or Abrasions Neurologic Neurologic: Denies headache(s) Psychiatric Psychiatric: Denies anxiety Endocrine Endocrinology: Denies cold intolerance Hematologic/Lymphatic Hematologic/Lymphatic: Denies easy bleeding Allergic/Immunologic Allergic/Immunologic ED: Denies mouth swelling, tongue swelling or urticaria EXAM Physical Exam Narrative Exam Narrative: 30-year-old female no acute distress vital signs stable afebrile. H EENT exam very very poor dentition. Multiple cavities. Multiple teeth eroded down to the gumline. No obvious abscess. Gingival swelling. No trouble swallowing or breathing. No Mikey's angina. Neck nontender no lymphadenopathy. Lungs clear to auscultation. Heart regular rhythm no murmur. Otherwise exam unremarkable. Const Vital Signs: 03/01/24 18:57 03/01/24 18:57 03/01/24 19:20 Temperature 97.2 F L 98.2 F Temperature Source Temporal Pulse Rate 83 85 86 Respiratory Rate 14 16 18 Blood Pressure 130/94 H 130/94 H 128/86 H Blood Pressure Mean 106 106 100 Pulse Ox 95 95 97 Oxygen Delivery Method Room Air Room Air Positive well nourished and well developed; Negative for cachectic, contractures or unkempt General Appearance ED: well developed and NAD; Negative for unkempt, cachectic or contractures Nutritional Appearance: Negative for cachectic HEENT Negative for trauma or tenderness Mouth ED: Yes lips normal, Yes tongue normal, Yes salivary gland normal and No salivary gland abnormal Mouth: lips normal, tongue normal, salivary gland normal and No salivary gland abnormal Teeth and Gingiva: abnormal tooth and associated gingiva Throat: posterior oropharynx normal Eyes PERRL and EOMs intact bilaterally General Eye ED: Negative for pale conjunctiva or scleral icterus Visual Acuity: Negative for other Neck no lymphadenopathy, supple and no JVD General: Negative for normal visual inspection, anterior neck swelling, tenderness or submandibular swelling Lymph Lymphatic: no lymphadenopathy noted; Negative for lymphadenopathy Chest Wall inspection of chest normal Chest: Negative for other Resp normal respiratory effort, no retractions and clear to auscultation bilaterally Cardio regular rate, regular rhythm, S1 normal heart sound, S2 normal heart sound and no murmurs Palpation: Negative for palpable S4 Rate: Negative for bradycardia or tachycardic Rhythm: Negative for abnormal rhythm GI normal to inspection, nondistended, normoactive bowel sounds, non-tender, non-distended and no masses Extremity normal to inspection and no joint enlargement General Extremety ED: Negative for edema General Extremity: Negative for edema Neuro oriented x3, CN's II-XII intact bilaterally, moves all extremities and no focal motor deficits Sensorium / Orientation: alert, oriented to person, oriented to place and oriented to time Motor Exam: strength 5/5 throughout Psych mental status grossly normal Appearance: Negative for unkempt Attitude: No agitated and No other Mood & Affect: Negative for depressed, anxious or tearful Skin no rashes or lesions noted and no wounds General Skin Exam: Negative for other MDM MDM MDM Narrative Medical decision making narrative: 30-year-old female very poor dentition with eroding teeth, gingivitis and cavities. No abscess to drain. No trismus. Motrin Tylenol for pain. Penicillin 4 times a day for 10 days. Follow-up with her dentist. First dose of penicillin given here. Discharge Plan Triage Chief Complaint: Dental ED Provider: Bimal Sharma Dx/Rx/DC Orders Clinical Impression: Pain, dental, Gingivitis, Dental cavities Instructions: ED Dental Pain, ED Dental Cavity Prescriptions: New penicillin V potassium 500 mg tablet 500 mg PO 4X/DAY Qty: 40 0RF No Action trazodone 50 mg tablet 50 mg PO QHS Qty: 30 1RF ibuprofen 600 mg tablet 600 mg PO TID PRN (Reason: Pain) albuterol sulfate 1 PUFF inhaler 1 - 2 puff inhalation Q4H PRN PRN (Reason: Sob &/Or Wheezing) Buprenorphine 2 tab PO DAILY amoxicillin 875 mg tablet 1 tab PO BID Patient Comments: take 2 tablets by mouth immediately FOLLOWED BY 1 tablet twice a day Primary Care Provider: Care Physician,No Primary Referrals: Care Physician,No Primary [Primary Care Provider] - Activity Restrictions/Additional Instructions: Warm salt water gargling. Tylenol Motrin for pain. Make sure you are taking the antibiotic penicillin 4 times a day till gone. Call and follow-up with your dentist soon as possible. Print Language: Spanish Disposition Disposition: Home, Self Care
[2024-03-01] MEDS: Penicillin Vk 250 MG Tablet 500 MG PO (19:32)
== END 2024-03-01 19:37 | disposition home or self-care (01) ==
PROVIDERS: Emergency Provider Emergency Medicine; Visit Provider Emergency Medicine
DX: K02.9 Dental caries, unspecified (principal); K08.89 Other specified disorders of teeth and supporting structures; R51.9 Headache, unspecified; F17.210 Nicotine dependence, cigarettes, uncomplicated; K05.10 Chronic gingivitis, plaque induced; Z90.710 Acquired absence of both cervix and uterus; J45.909 Unspecified asthma, uncomplicated
CPT/HCPCS: 99283